=== PATIENT | male | born 1975 | race Two or more races ===

== ENCOUNTER 2021-07-06 15:48 | Emergency (ER) | payer MEDICAID, OTHER ==
[~2021-07-06] VITALS: Ht 175.3 cm; Wt 86.2 kg
[2021-07-06 15:49] VITALS: BP 150/101
[2021-07-06] MEDS ORDERED: KETOROLAC TROMETH 60MG/2ML VIAL IM ONE (17:30)
[2021-07-06] MEDS ORDERED: IBUP800T27 PO (17:52)
== END 2021-07-06 18:01 | disposition home or self-care (01) ==
LOC: ER 15:48
DX: S83.92XA Sprain of unspecified site of left knee, initial encounter (principal); M25.462 Effusion, left knee; F17.210 Nicotine dependence, cigarettes, uncomplicated; Z79.1 Long term (current) use of non-steroidal anti-inflammatories (NSAID); W06.XXXA Fall from bed, initial encounter; Y93.89 Activity, other specified; Y92.89 Other specified places as the place of occurrence of the external cause; Y99.8 Other external cause status
CPT/HCPCS: 73562; 96372